=== PATIENT | female | born 1995 | race Caucasian/White ===

== ENCOUNTER 2023-07-29 19:18 | Inpatient (IN) ==
[2023-07-29] MEDS ORDERED: OXYTOCIN 30 UNITS/500 ML BAG IV PRN ×2 (19:29→22:02)
[2023-07-29] MEDS ORDERED: LACTATED RINGER'S 1,000 ML IV PRN (19:29)
[2023-07-29] MEDS ORDERED: LIDOCAINE 1% LOCAL 20 ML VIAL INFIL PRN (19:29)
[2023-07-29] MEDS ORDERED: PENICILLIN G POTASSIUM 6 MU in DEXTROSE 5% 250 ML IV STA (19:29)
--- NOTE | 2023-07-29 19:54 | History & Physical Report ---
Date of Service July 29, 2023 Assessment & Plan (1) Supervision of normal intrauterine in multigravida: Plan: at 40 weeks in active labor GBS-(+) start PCN G prophylaxis now planning unmedicated anticipate vaginal delivery History of Present Illness Primary Care Provider: NO PCP patient is a 27 yo female EDC 07/30/23 who presents at 40 weeks in active labor. contractions were every 5-6 minutes at 1730 this evening. the contractions are now every 3-5 minutes apart and stronger. (-) SPROM - minimal bloody show. GBS(+). otherwise uncomplicated. Allergies Allergy/AdvReac Type Severity Reaction Status Date / Time No Known Allergies Allergy Verified 07/26/23 09:21 Home Medications Medication Instructions Recorded Confirmed Type [id number] acid PO 05/16/23 07/26/23 History [ Multi] breast pump #1 ea 07/05/23 07/26/23 Rx aspirin [Adult Low Dose Aspirin] PO 07/12/23 07/26/23 History famotidine [Pepcid] PO 07/12/23 07/26/23 History Patient History Medical History COVID-19 Varicella vaccination Surgical History S/P wisdom tooth extraction Family History Grandfather (Maternal) Colorectal cancer Grandfather (Paternal) Heart disease Father Hypertension Sister Congenital heart defect Aunt , age 16 Hypertrophic cardiomyopathy Denies family history of Ovarian cancer Breast cancer Social History Smoking Status: Never smoker Do You Dip or Chew Tobacco: No; marital status: marital status details: Randy Martinez (26) [phone] Current Living Situation: Spouse and Family Current Living Situation Comment: lives with spouse, son, parents, no pets current occupational status: unemployed 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 Review of Systems All systems reviewed & are unremarkable except as noted in HPI & below Physical Exam Constitutional: WD/WN, vitals as above Psychiatric: A+Ox3, euthymic affect Genitourinary: OB Exam Abdomen: + vertex, + estimated weight (7-8 pounds) and + regular contractions Manual OB Exam: + cervical dilation 7 cm, + cervical effacement 100%, + station -1 and + amniotic fluid (intact) OB Exam Monitor Tracing: + external FHT monitor used, + external uterine monitor used, + category II (variables with contractions otherwise reactive), + normal FHT variability and + variable decelerations isolated (with contractions intermittently) Results & Data Vital Signs (Past 12 Hours) Vital Signs Pulse BP 07/29/23 19:47 60 132/72 Code Status & VTE Plan VTE Prophylaxis Plan VTE Prophylaxis will be ordered: No Coding Level of Care Code None Diagnoses Supervision of normal intrauterine in multigravida Z34.80
[2023-07-29 20:21] LABS: Hematocrit (blood only) 33.7 % (37.0-47.0); Hemoglobin 11.2 g/dl (12.0-16.0); Mean Corpuscular Hemoglobin 27.8 pg (25.0-34.0); Mean Corpuscular Hgb Conc 33.2 g/dL (32.0-36.0); Mean Corpuscular Volume 83.6 fL (80.0-100.0); Mean Platelet Volume 11.5 fL (9.4-12.4); Platelet Count 146 K/uL (130-400); RDW Coefficient of Variation 13.5 % (11.5-14.5); RDW Standard Deviation 41.1 fL (36.4-46.3); Red Blood Count 4.03 M/uL (4.20-5.40); White Blood Count 8.72 K/ul (4.8-10.8)
[2023-07-29] MEDS ORDERED: FAMOTIDINE 10 MG TABLET PO ONE (20:21)
[2023-07-29] MEDS ORDERED: HYDROCORTISONE ACETATE 25 MG SUPP PR PRN (22:02)
[2023-07-29] MEDS ORDERED: BENZOCAINE 20% SPRY 85 APPLN/85 GM CAN EXT PRN (22:02)
[2023-07-29] MEDS ORDERED: DIPHTHERIA/TETANUS/PERTUSSIS Vaccine (Tdap, Age 7+yrs) 0.5mL SYR/VL IM ONE (22:02)
[2023-07-29] MEDS ORDERED: bisacodyL 10 MG SUPP PR PRN (22:02)
[2023-07-29] MEDS ORDERED: oxyCODONE/ACETAMINOPHEN 5mg/325mg TAB PO PRN (22:02)
--- NOTE | 2023-07-29 22:08 | Delivery Summary ---
Vaginal Delivery Summary Date of Service July 29, 2023 Vaginal Delivery Summary and 1st Degree LAC (vaginal) Patient is a 27-year-old 2 para 1-0-0-1 female who presented in active labor. She presented at 7 cm dilated and is GBS positive. She received 1 dose of penicillin at which time she had the urge to push. There was bulging fore conner which was ruptured for clear fluid. She then began pushing and did so effectively over intact perineum for delivery of a viable male infant. There was a tight nuchal cord noted after the head was delivered. This was clamped and cut prior to delivering the shoulders which were done without maternal effort. The infant was placed on the mother's abdomen for further attention and drying. He was vigorous and moving all 4 limbs. After cord blood was obtained, the placenta was expressed intact with a three-vessel cord. A first-degree vaginal laceration was repaired with 3-0 chromic in the usual fashion. 1% lidocaine was used to anesthetize the area prior to the repair. Approximately 12 cc of 1% lidocaine were used. bleeding was controlled with dilute Pitocin and fundal massage. Estimated blood loss 200 cc. Mother and were doing well after delivery. [facility] [place] Charge Delivery Type Details: and 1st Degree LAC (vaginal)
[2023-07-29] MEDS: ACETAMINOPHEN 325 MG TAB PO PRN (22:17)
[2023-07-29] MEDS: IBUPROFEN 600 MG TAB PO PRN (22:18)
[2023-07-29] MEDS ORDERED: PENICILLIN G POTASSIUM 3 MU in DEXTROSE 5% 100 ML IV PRN (22:29)
[2023-07-30] MEDS: IBUPROFEN 600 MG TAB PO PRN ×4 (03:54→20:07)
[2023-07-30] MEDS: ACETAMINOPHEN 325 MG TAB PO PRN ×4 (03:55→23:43)
--- NOTE | 2023-07-30 06:12 | Obstetrical Progress Note ---
Date of Service <Sandy Mcfarlane MD - Last Filed: 07/30/23 07:31> July 30, 2023 Assessment & Plan <Sandy Mcfarlane MD - Last Filed: 07/30/23 07:31> (1) Encounter for care and examination after delivery: Plan 27 yo post- day 1 s/p -Vital Signs reviewed and WNL. (Tmax at 36.9) -Hemoglobin Reviewed. 12.011.0 (today). - Blood Type: AB+, GBS+, Rubella Immune. - Pt is doing well clinically. - Encourage Ambulation, Monitor and Control pain with Motrin PRN, Resume regular diet, Monitor Lochia Encourage Breast Feeding. <Louisa Stone MD, FACOG - Last Filed: 07/30/23 07:48> (1) Encounter for care and examination after delivery: Subjective <Sandy Mcfarlane MD - Last Filed: 07/30/23 07:31> 27 yo post- day 1 s/p Ambulation: ambulating normally Voiding: no voiding problems Passing Gas:: Yes Diet Tolerance:: regular diet Lochia:: Small Feeding Type:: Current Pain Level: 4/10 Resting comfortably this AM in NAD. Denies STEINBERG, CP, SOB, N/V/D, LE pain/swelling. Review of Systems All systems reviewed & are unremarkable except as noted in HPI & below Physical Exam <Sandy Mcfarlane MD - Last Filed: 07/30/23 07:31> General: patient resting comfortably, NAD, non-toxic in appearance, AA&O x 4, answers questions appropriately. Skin: warm, dry, intact HEENT: NC/AT, anicteric sclera, conjunctiva without injection, moist mucus membranes. Heart: +S1/S2, regular, no m/r/g Lungs: equal air entry bilaterally, no rales/rhonchi/wheezes Abd: +BS, soft, NT/ND, uterine fundus firm at umbilicus. Ext: warm, no clubbing/cyanosis or edema, Ankita's neg. Neuro: nonfocal, patient AA&O x 4, speech intact, no facial droop, moving all extremities on command. Results & Data <Sandy Mcfarlane MD - Last Filed: 07/30/23 07:31> Vital Signs (Past 12 Hours) Vital Signs Temp Pulse Pulse Resp BP BP Pulse Ox 07/30/23 03:45 36.9 C 67 16 124/66 97 07/30/23 00:20 36.5 C 64 18 120/62 95 07/29/23 23:25 18 07/29/23 23:55 36.5 C 20 07/29/23 22:55 18 07/29/23 22:40 18 07/29/23 22:25 20 07/29/23 22:10 18 07/29/23 21:55 20 07/29/23 23:57 62 148/71 H 07/29/23 23:55 61 153/73 H 07/29/23 23:40 60 145/71 H 07/29/23 23:25 67 137/64 07/29/23 23:10 62 133/57 L 07/29/23 22:55 51 L 153/80 H 07/29/23 22:40 60 145/76 H 07/29/23 22:25 57 L 142/73 H 07/29/23 22:10 65 133/72 07/29/23 21:54 65 142/67 H 07/29/23 19:47 60 132/72 07/29/23 19:41 36.6 C 22 O2 Del Method 07/30/23 03:45 Room Air 07/30/23 00:20 Room Air 07/29/23 23:25 07/29/23 23:55 07/29/23 22:55 07/29/23 22:40 07/29/23 22:25 07/29/23 22:10 07/29/23 21:55 07/29/23 23:57 07/29/23 23:55 07/29/23 23:40 07/29/23 23:25 07/29/23 23:10 07/29/23 22:55 07/29/23 22:40 07/29/23 22:25 07/29/23 22:10 07/29/23 21:54 07/29/23 19:47 07/29/23 19:41 <Louisa Stone MD, FACOG - Last Filed: 07/30/23 07:48> Co-Signing Physician Notes Resident Physician Supervision Note: I interviewed and examined the patient. Discussed with Dr. Delon Mcfarlane and agree with findings and plan as documented in the note. Any exceptions or clarifications are listed here: [None] Documented By: Louisa Stone MD, FACOG Resident Activity Tracking <Sandy Mcfarlane MD - Last Filed: 07/30/23 07:31> Resident Involvement: Resident Care Provided Care Provided: OB Delivery
[2023-07-30 06:28] LABS: Hematocrit (blood only) 31.6 % (37.0-47.0); Hemoglobin 10.5 g/dl (12.0-16.0); Mean Corpuscular Hemoglobin 27.9 pg (25.0-34.0); Mean Corpuscular Hgb Conc 33.2 g/dL (32.0-36.0); Mean Platelet Volume 11.8 fL (9.4-12.4); Platelet Count 138 K/uL (130-400); RDW Coefficient of Variation 13.7 % (11.5-14.5); RDW Standard Deviation 42.1 fL (36.4-46.3); Red Blood Count 3.76 M/uL (4.20-5.40); White Blood Count 12.97 K/ul (4.8-10.8)
[2023-07-30] MEDS: DOCUSATE SODIUM 100 MG CAP PO SCH ×2 (08:07→20:07)
[2023-07-30] MEDS: PRENATAL VITAMIN 1 TAB PO SCH (08:07)
[2023-07-30] MEDS ORDERED: bisacodyL 5 MG TABEC PO SCH (20:00)
[2023-07-31] MEDS: IBUPROFEN 600 MG TAB PO PRN ×2 (03:28→07:55)
--- NOTE | 2023-07-31 06:02 | Obstetrical Progress Note ---
Date of Service July 31, 2023 Assessment & Plan (1) Encounter for care and examination after delivery: Plan: 27 yo post- day 1 s/p -Vital Signs reviewed and WNL. (Tmax at 36.9) -Hemoglobin Reviewed. 12.011.0 (today). - Blood Type: AB+, GBS+, Rubella Immune. - Pt is doing well clinically. - Encourage Ambulation, Monitor and Control pain with Motrin PRN, Resume regular diet, Monitor Lochia Encourage Breast Feeding. -Discharge today, patient counselled on discharge instructions Admission and Anticipated Discharge Date Admission Date: July 29, 2023 Supervising Physician Co-Signing Physician Notes Patient seen and evaluated and agree with the above findings and plan. Stable for discharge Subjective 27 yo post- day 1 s/p Ambulation: ambulating normally Voiding: no voiding problems Passing Gas:: Yes Diet Tolerance:: regular diet Lochia:: Small Feeding Type:: Current Pain Level: minimal Resting comfortably this AM in NAD. Denies STEINBERG, CP, SOB, N/V/D, LE pain/swelling. Review of Systems Review of Systems: All systems reviewed & are unremarkable except as noted in HPI & below Physical Exam Physical Exam: General: patient resting comfortably, NAD, non-toxic in appearance, AA&O x 4, answers questions appropriately. Skin: warm, dry, intact HEENT: NC/AT, anicteric sclera, conjunctiva without injection, moist mucus membranes. Heart: +S1/S2, regular, no m/r/g Lungs: equal air entry bilaterally, no rales/rhonchi/wheezes Abd: +BS, soft, NT/ND, uterine fundus firm at umbilicus. Ext: warm, no clubbing/cyanosis or edema, Ankita's neg. Neuro: nonfocal, patient AA&O x 4, speech intact, no facial droop, moving all extremities on command. Results & Data Vital Signs (Past 12 Hours) Vital Signs Temp Pulse Resp BP Pulse Ox O2 Del Method 07/30/23 23:50 36.5 C 55 L 18 124/64 97 Room Air 07/30/23 19:30 36.3 C L 60 20 125/69 98 Room Air Resident Activity Tracking Resident Involvement: Resident Care Provided Care Provided: OB Delivery
[2023-07-31 06:29] LABS: Hemoglobin 10.3 g/dl (12.0-16.0)
[2023-07-31] MEDS: PRENATAL VITAMIN 1 TAB PO SCH (07:54)
[2023-07-31] MEDS: DOCUSATE SODIUM 100 MG CAP PO SCH (07:55)
== END 2023-07-31 10:35 | disposition home or self-care (01) | DRG 807 ==
LOC: OPB 19:18 → 4S1 19:19 → 4E2 07-30 00:26

== ENCOUNTER 2025-03-06 08:17 | Inpatient (IN) ==
[2025-03-06] MEDS ORDERED: LIDOCAINE 1% LOCAL 20 ML VIAL INFIL PRN (08:42)
[2025-03-06] MEDS ORDERED: OXYTOCIN 30 UNITS/NSS 30 UNITS/500 ML BAG IV PRN ×2 (08:42→14:34)
[2025-03-06] MEDS: LACTATED RINGER'S 1,000 ML IV PRN (08:50)
[2025-03-06 09:17] LABS: Hematocrit (blood only) 31.6 % (37.0-47.0); Hemoglobin 10.7 g/dl (12.0-16.0); Mean Corpuscular Hemoglobin 28.5 pg (25.0-34.0); Mean Corpuscular Hgb Conc 33.9 g/dL (32.0-36.0); Mean Corpuscular Volume 84.3 fL (80.0-100.0); Mean Platelet Volume 10.9 fL (9.4-12.4); Platelet Count 117 K/uL (130-400); RDW Coefficient of Variation 13.6 % (11.5-14.5); RDW Standard Deviation 41.2 fL (36.4-46.3); Red Blood Count 3.75 M/uL (4.20-5.40); White Blood Count 6.98 K/ul (4.8-10.8)
[2025-03-06] MEDS: PENICILLIN GK 6 MU in DEXTROSE 5% 250 ML IV STA (09:23)
[2025-03-06] MEDS: OXYTOCIN 30 UNITS/NSS 30 UNITS/500 ML BAG IV PRN (09:25)
--- NOTE | 2025-03-06 09:49 | History & Physical Report ---
Date of Service March 06, 2025 Assessment & Plan (1) Post term over 40 weeks: Plan: Intrauterine at 40-4/7 weeks presents for induction of labor because of postterm . She is disha irregularly already so we will start penicillin prophylaxis now. Will add Pitocin for augmentation as needed. Undecided about epidural analgesia. Anticipate vaginal . Admission and Anticipated Discharge Date Admission Date: March 06, 2025 History of Present Illness Primary Care Provider: NO PCP Patient is a 29-year-old 3 para 2-0-0-2 female EDC of 03/02/2025 who presents for induction of labor for postterm . has been uncomplicated. GBS is positive. Allergies Allergy/AdvReac Type Severity Reaction Status Date / Time No Known Allergies Allergy Verified 03/05/25 13:50 Home Medications Medication Instructions Recorded Confirmed Type breast pump #1 ea 12/22/24 03/05/25 Rx vits no.124-ferrous fum 1 tab PO DAILY 03/06/25 03/06/25 History 27 mg iron-folic acid 800 mcg tablet ( Vitamin) Patient History Medical History (Updated 03/06/25 @ 09:47 by Louisa Stone MD, FACOG) Encounter for care and examination after delivery COVID-19 Varicella vaccination Supervision of normal intrauterine in multigravida Surgical History S/P wisdom tooth extraction Family History Grandfather (Maternal) Colorectal cancer Grandfather (Paternal) Heart disease Father Hypertension Sister Congenital heart defect Aunt , age 16 Hypertrophic cardiomyopathy Denies family history of Ovarian cancer Breast cancer Social History (Updated 08/19/24 @ 09:56 by Sailaja Yen) Smoking Status: Never smoker Second Hand Exposure: No; Do You Dip or Chew Tobacco: No; Hx Alcohol Use: No Hx Substance Use: No Preferred Language: Sudanese Communication Ability: Effective 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: No Beliefs That Will Affect Care: None marital status: marital status details: Randy Martinez (27) [phone] Current Living Situation: Spouse and Family Current Living Situation Comment: lives with spouse, 2 son, no pets current occupational status: unemployed 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 Feels Safe at Home: Yes Assistive Devices: Glasses Review of Systems All systems reviewed & are unremarkable except as noted in HPI & below Physical Exam Constitutional: WD/WN, vitals as above Psychiatric: A+Ox3, euthymic affect Genitourinary: OB Exam Abdomen: + fundal height (term), + vertex, + estimated weight (8-9 pounds) and + irregular contractions Manual OB Exam: + cervical dilation 5 cm, + cervical effacement 80% and + station -2 (posterior) OB Exam Monitor Tracing: + external FHT monitor used, + external uterine monitor used, + category I and + normal FHT variability Results & Data Vital Signs (Past 12 Hours) Vital Signs Pulse BP 03/06/25 08:23 71 128/68 Code Status & VTE Plan VTE Prophylaxis Plan VTE Prophylaxis will be ordered: No Coding Level of Care Code 40948 INT INP/OBS CARE MIN Diagnoses Post term over 40 weeks O48.0
[2025-03-06] MEDS: PENICILLIN GK 3 MU in DEXTROSE 5% 100 ML IV PRN (13:05)
[2025-03-06] MEDS: CALCIUM CARBONATE 500 MG CHEWABLE TAB PO PRN (13:43)
[2025-03-06] MEDS ORDERED: HYDROCORTISONE ACETATE 25 MG SUPP PR PRN (14:34)
[2025-03-06] MEDS ORDERED: oxyCODONE/ACETAMINOPHEN 5mg/325mg TAB PO PRN (14:34)
[2025-03-06] MEDS ORDERED: bisacodyL 10 MG SUPP PR PRN (14:34)
[2025-03-06] MEDS: ACETAMINOPHEN 325 MG TAB PO PRN ×2 (14:37→20:50)
[2025-03-06] MEDS: IBUPROFEN 600 MG TAB PO PRN (14:52)
[2025-03-06] MEDS: BENZOCAINE 20% SPRY 85 APPLN/85 GM CAN EXT PRN (14:53)
--- NOTE | 2025-03-06 16:50 | Delivery Summary ---
Vaginal Delivery Summary Date of Service March 06, 2025 Vaginal Delivery Summary Patient is a 29-year-old -0-0-2 female presents for induction of labor because of postterm . Penicillin prophylaxis has begun because of group B strep positive status. Pitocin augmentation was also begun as she was already disha on admission to labor and delivery. After she received the second dose of antibiotic, membranes were ruptured for clear fluid. She progressed quickly to full dilation and pushed effectively over intact perineum for delivery of a viable female infant. After the head was delivered the shoulders were delivered without maternal effort. She was placed on the mother's abdomen for further tension and drying. After 1 minute, the cord was clamped and cut. After cord blood was obtained, the placenta was expressed intact with a three-vessel cord. bleeding was controlled with dilute Pitocin and fundal massage. A perineal laceration was superficial not bleeding and therefore not repaired. Mother and infant were doing well after delivery. QBL is 400 mL. [facility] Vaginal Delivery Charge Delivery Type Details: [facility]
[2025-03-06] MEDS: DOCUSATE SODIUM 100 MG CAP PO SCH (20:50)
[2025-03-06 23:12] VITALS: RESP 16
--- NOTE | 2025-03-07 07:12 | Obstetrical Progress Note ---
Date of Service March 07, 2025 Assessment & Plan (1) Encounter for assessment: Plan: Patient is PPD 1 s/p and doing well - Eating well, voiding well, ambulating well - vitals reviewed and within normal limits - pain well controlled with analgesics - OOB, ambulation, diet progression as tolerated - Blood type: AB+, GBS pos, rubella immune - Plan to discharge today - After discharge, 6 week follow up with [facility] Admission and Anticipated Discharge Date Admission Date: March 06, 2025 Supervising Physician Co-Signing Physician Notes Resident Physician Supervision Note: I interviewed and examined the patient. Discussed with Dr. Puentes and agree with findings and plan as documented in the note. Any exceptions or clarifications are listed here: [None] Documented By: Louisa Stone MD, FACOG Subjective 29 yo post- day 1 s/p Ambulation: ambulating normally Voiding: no voiding problems Passing Gas:: Yes Diet Tolerance:: regular diet Lochia:: Small Feeding Type:: bottle feeding Current Pain Level: 2/10 Resting comfortably this AM in NAD. Denies STEINBERG, CP, SOB, N/V/D, LE pain/swelling. Physical Exam 2 Physical Exam: General: patient resting comfortably, NAD, non-toxic in appearance, answers questions appropriately. Skin: warm, dry, intact HEENT: NC/AT, anicteric sclera, conjunctiva without injection, moist mucus membranes. Heart: +S1/S2, regular, no m/r/g Lungs: equal air entry bilaterally, no rales/rhonchi/wheezes Abd: +BS, soft, NT/ND, uterine fundus firm at umbilicus Ext: warm, no clubbing/cyanosis or edema Neuro: nonfocal, speech intact, no facial droop, moving all extremities. Results & Data Vital Signs (Past 12 Hours) Vital Signs Temp Pulse Resp BP Pulse Ox O2 Del Method 03/07/25 03:55 36.5 C 59 L 16 130/82 98 Room Air 03/06/25 23:55 36.8 C 62 16 116/66 96 Room Air 03/06/25 20:45 36.7 C 59 L 16 132/78 97 Room Air Resident Activity Tracking Resident Involvement: Resident Care Provided Care Provided: OB Delivery
[2025-03-07 07:30] LABS: Hematocrit (blood only) 31.2 % (37.0-47.0); Hemoglobin 10.4 g/dl (12.0-16.0); Mean Corpuscular Hemoglobin 28.3 pg (25.0-34.0); Mean Corpuscular Hgb Conc 33.3 g/dL (32.0-36.0); Mean Corpuscular Volume 84.8 fL (80.0-100.0); Mean Platelet Volume 11.2 fL (9.4-12.4); Platelet Count 117 K/uL (130-400); RDW Coefficient of Variation 13.7 % (11.5-14.5); RDW Standard Deviation 42.2 fL (36.4-46.3); Red Blood Count 3.68 M/uL (4.20-5.40); White Blood Count 9.96 K/ul (4.8-10.8)
[2025-03-07] MEDS: PRENATAL VITAMIN 1 TAB PO SCH (08:40)
[2025-03-07] MEDS: DIPHTHER/TETAN/PERTUS Vaccine (Tdap, Adol/Adult) 0.5mL IM ONE (08:41)
[2025-03-07 12:37] VITALS: BP 113/66; PULSE 65; TEMP 97.3; O2SAT 97
[2025-03-07] MEDS ORDERED: bisacodyL 5 MG TABEC PO SCH (20:00)
== END 2025-03-07 15:35 | disposition home or self-care (01) | DRG 806 ==
LOC: 4S1 08:17 → 4E2 17:30